=== PATIENT | male | born 1955 | race Caucasian/White ===

== ENCOUNTER 2017-09-28 13:17 | Outpatient (CLI) | payer MEDICARE ==
--- NOTE | 2017-09-28 15:49 | MRI ---
PRE AND POST CONTRAST ENHANCED MRI LUMBAR SPINE: HISTORY: A 62-year-old male with a history of spinal stenosis (M48.061). COMPARISON: 11/03/2015 FINDINGS: Multiplanar, multisequence pre and post contrast enhanced MR images of the lumbar spine demonstrate, again, central disk protrusion at T12-L1, compressing the thecal sac, resulting in a moderate degree of central canal stenosis. The neural foramen are patent. L1-L2/L2-L3: Mild facet hypertrophy is seen. No significant degree of central stenosis or neural fo raminal narrowing is seen. L3-L4: Some disk desiccation is seen. Bilateral facet hypertrophy is seen. Some fluid is seen in t he L2-L3 facet joints. There is mild anterolisthesis of L3 on L4. This is unchanged since the previ ous comparison MRI. L4-L5: Disk desiccation is seen. There is a broad-based disk bulge. Bilateral facet hypertrophy is seen. Fluid is seen in the L4-L5 facet joint. The patient has had previous L4 laminotomy changes. The mild to moderate central stenosis at L4-L5 appears to have decreased since the previous post reina gical decompression. There is only some minimal central stenosis seen at L4-L5. The neural foramen demonstrate continued moderate to severe bilateral neural foraminal narrowing. L5-S1: Bilateral facet hypertrophy is seen. There is moderate left and mild right-sided neural fora diana narrowing. This is unchanged since the previous exam. IMPRESSION: 1. Posterior decompression at L3-L4 and at L4-L5 due to laminotomy changes. The neural foramen karishma in unchanged. 2. T12-L1 central disk protrusion compressing the thecal sac. POS: [facility]
== END 2017-09-28 13:18 | disposition home or self-care (01) ==
LOC: TBSIIMAG 13:17
PROVIDERS: ATTEND Neurological Surgery
DX: M48.061 Spinal stenosis, lumbar region without neurogenic claudication (principal); M51.25 Other intervertebral disc displacement, thoracolumbar region; M96.1 Postlaminectomy syndrome, not elsewhere classified
CPT/HCPCS: 72158; 82565